=== PATIENT | female | born 1980 | race Caucasian/White ===

== ENCOUNTER 2024-02-18 05:19 | Day surgery (SDC) | payer BC ==
[2024-02-15 09:53] VITALS: BMI 24.5
[2024-02-18] MEDS ORDERED: oxyCODONE HCL 5 MG TABLET PO PRN (08:55)
[2024-02-18] MEDS ORDERED: ACETAMINOPHEN 325 MG TABLET (FP) PO PRN (08:55)
[2024-02-18] MEDS ORDERED: IBUPROFEN 400 MG TABLET (FP) PO PRN (08:55)
[2024-02-18] MEDS ORDERED: BUPIVACAINE HCL/PF 0.5% (5MG/ML) 10 ML VIAL ONE (11:23)
[2024-02-18] MEDS ORDERED: MIDAZOLAM HCL 2 MG/2 ML SINGLE DOSE VIAL ONE (12:07)
[2024-02-18] MEDS ORDERED: PROPOFOL 20 ML ONE (12:07)
[2024-02-18] MEDS ORDERED: ROCURONIUM BROMIDE 50 MG/5 ML SYRINGE ONE ×2 (12:07→12:47)
[2024-02-18] MEDS: ceFAZolin 2 GRAM PREMIX BAG IVPB ONE (12:25)
[2024-02-18] MEDS: BUPIVACAINE HCL/PF 0.5% (5MG/ML) 10 ML VIAL IJ ONE (12:41)
[2024-02-18] MEDS ORDERED: GLYCOPYRROLATE 0.2 MG/1 ML VIAL ONE (12:43)
[2024-02-18] MEDS ORDERED: SUGAMMADEX SODIUM 200 MG/2 ML VIAL ONE (13:24)
[2024-02-18] MEDS ORDERED: LACTATED RINGERS SOLUTION 1,000 ML IV SCH (14:00)
[2024-02-18 15:18] VITALS: RESP 18
[2024-02-18 16:24] VITALS: TEMP 97.8
[2024-02-18 16:57] VITALS: BP 110/70; PULSE 68
== END 2024-02-18 17:25 | disposition home or self-care (01) ==
LOC: JASU-SURG 05:19
PROVIDERS: ATTEND Obstetrics & Gynecology
PROC: 0UT74ZZ Resection of Bilateral Fallopian Tubes, Percutaneous Endoscopic Approach (ICD-10-PCS; principal; 2024-02-18 10:30)
PROC: 0UB04ZZ Excision of Right Ovary, Percutaneous Endoscopic Approach (ICD-10-PCS; 2024-02-18 10:30)
DX: Z30.2 Encounter for sterilization (principal); N83.201 Unspecified ovarian cyst, right side
CPT/HCPCS: 81025; 86850; 86900; 86901; 88104; 88300-TC; 88302-TC; 88305-TC; 94760